=== PATIENT | male | born 1955 | race African-American/Black ===

== ENCOUNTER 2018-08-27 05:48 | Day surgery (SDC) | payer OTHER ==
[~2018-08-27] VITALS: Ht 193 cm; Wt 113.3 kg
[2018-08-27 06:15] VITALS: BP 109/69
[2018-08-27] MEDS ORDERED: methylPREDNISolone*ACETATE* 80 MG/ML ONE (06:20)
[2018-08-27] MEDS ORDERED: BUPIVACAINE/EPI 0.5% 1:200K ONE (06:20)
[2018-08-27] MEDS ORDERED: ROPIvacaine/PF 0.5%, 30 ML ONE (06:20)
[2018-08-27] MEDS ORDERED: LACTATED RINGERS 1,000 ML IV SCH (06:23)
[2018-08-27 06:24] VITALS: BP 109/69
[2018-08-27] MEDS ORDERED: FENTANYL PF 100 MCG/2ML ONE ×2 (06:28→07:26)
[2018-08-27] MEDS ORDERED: LOSA1TAB19 PO (06:29)
[2018-08-27] MEDS ORDERED: CELE200C PO (06:29)
[2018-08-27] MEDS ORDERED: SPIR25TA5 PO (06:29)
[2018-08-27] MEDS ORDERED: HYDRALAZINE PO (06:29)
[2018-08-27] MEDS ORDERED: LIDOCAINE 2% 100MG/5ML SYRINGE ONE (06:56)
[2018-08-27] MEDS ORDERED: PROPOFOL 10 MG/ML, 20ML ONE (06:56)
[2018-08-27] MEDS ORDERED: ACETAMINOPHEN 650 MG/20.3 ML UDC ONE (07:26)
[2018-08-27] MEDS ORDERED: OXYcodone 5 MG/5 ML ORAL.SOL UDC ONE ×2 (07:27→07:45)
[2018-08-27] MEDS: OXYcodone 5 MG/5 ML ORAL.SOL UDC PO PRN ×2 (07:28→07:46)
[2018-08-27] MEDS ORDERED: ONDANSETRON ODT 8 MG PO PRN (07:30)
[2018-08-27] MEDS ORDERED: ACETAMINOPHEN 325 MG TABLET PO PRN (07:30)
[2018-08-27] MEDS ORDERED: ONDANSETRON 2MG/ML, 2ML IV PRN (07:30)
[2018-08-27] MEDS: FENTANYL PF 100 MCG/2ML IV PRN ×3 (07:31→07:44)
== END 2018-08-27 09:00 | disposition home or self-care (01) ==
LOC: OUT 05:48
PROVIDERS: ATTEND Orthopaedic Surgery
DX: M25.661 Stiffness of right knee, not elsewhere classified (principal); I10 Essential (primary) hypertension; G47.33 Obstructive sleep apnea (adult) (pediatric); Z96.651 Presence of right artificial knee joint; Z79.899 Other long term (current) drug therapy; M19.90 Unspecified osteoarthritis, unspecified site
CPT/HCPCS: 27570; J2704; J3010; J7120; J2795; J1040